=== PATIENT | female | born 1990 | race Caucasian/White ===

== ENCOUNTER 2017-05-15 09:51 | Day surgery (SDC) | payer OTHER ==
[2017-05-09 14:05] LABS: Basophils # (auto) 0.1 uL; Basophils % (auto) 0.6 % (0.0-2.0); Hemoglobin 13.4 g/dL (12.2-16.2); Neutrophils # (auto) 5.7 uL; Neutrophils % (auto) 63.2 % (37.0-80.0)
[2017-05-09 14:07] LABS: Eosinophils # (auto) 0.2 uL; Eosinophils % (auto) 1.7 % (0.0-7.0); Hematocrit 39.6 % (36.0-46.0); Lymphocytes # (auto) 2.4 uL; Lymphocytes % (auto) 26.5 % (10.0-50.0); Mean Corpuscular Volume 79.5 fL (80.0-100.0); Monocytes # (auto) 0.7 uL; Nucleated Red Blood Cells % 0.2 %; Platelet Count (auto) 379 10^3/uL (140-450); Red Blood Cells 4.98 10^6/uL (4.0-5.20); Red Cell Distribution Width 13.9 % (11.8-14.3)
[2017-05-09 14:17] LABS: INR 0.9 (0.9-1.15); Partial Thromboplastin Time 26.1 sec (22.64-33.71); Prothrombin Time 9.8 sec (9.37-12.3)
[2017-05-09 14:33] LABS: Albumin 3.6 g/dL (3.4-5.0); Bilirubin, Total 0.2 mg/dL (0.2-1.0); Calcium 8.7 mg/dL (8.5-10.1); Potassium 3.7 mmol/L (3.5-5.1); Total Protein 7.1 g/dL (6.4-8.2); Urine Amorphous Crystal FEW /hpf (None Seen); Urine Bacteria NONE SEEN /hpf (None Seen); Urine Blood 1+ /uL (Negative); Urine Specific Gravity 1.026 (1.001-1.035); Urine WBC 3 /hpf (0 - 5)
[~2017-05-15] VITALS: Ht 160 cm; Wt 90.7 kg
[~2017-05-15 09:51] MED LIST: LEVOTAB9 PO; SERT25TA84 PO; SIMV20TA90 PO
[2017-05-15] MEDS ORDERED: CLINDAMYCIN 600MG IV 50 ML IV ONE (11:10)
[2017-05-15] MEDS ORDERED: MIDAZOLAM HCL 1MG/1ML-2 ML VIAL ONE (12:47)
[2017-05-15] MEDS ORDERED: fentaNYL CITRATE 100 MCG/2 ML VL ONE ×2 (12:47→12:58)
[2017-05-15] MEDS ORDERED: PROPOFOL 10 MG/ML 20 ML IV ONE (12:48)
[2017-05-15] MEDS ORDERED: BUPIVACAINE 0.75% INJ 10ML MPV SDV IJ ONE (13:12)
[2017-05-15] MEDS ORDERED: NEOMYCIN-BACITRACIN-POLYM 15GM TOP OINT TOP ONE (13:14)
[2017-05-15] MEDS ORDERED: HYDROmorphone HCL 2 MG/ML VL IV PRN (13:30)
[2017-05-15] MEDS ORDERED: ePHEDrine SULFATE 50 MG/ML AMP IV PRN (13:30)
[2017-05-15] MEDS ORDERED: ONDANSETRON HCL 4 MG/2 ML VIAL IV ONE (13:30)
[2017-05-15] MEDS ORDERED: hydrALAZINE HCL 20 MG/ML VL IV PRN (13:30)
[2017-05-15 14:10] VITALS: BP 118/72
== END 2017-05-15 14:10 | disposition home or self-care (01) ==
LOC: SUR 09:51
PROVIDERS: ATTEND Podiatrist Foot & Ankle Surgery
DX: M72.2 Plantar fascial fibromatosis (principal); D69.6 Thrombocytopenia, unspecified; Z88.0 Allergy status to penicillin; E66.9 Obesity, unspecified; Z68.35 Body mass index [BMI] 35.0-35.9, adult; E78.00 Pure hypercholesterolemia, unspecified
CPT/HCPCS: 28060; 36415; 80053; 81001; 84702; 85025; 85610; 85730; J2250; J2704; J3010; J3490; L3260; V2790